=== PATIENT | female | born 1985 | race Caucasian/White ===

== ENCOUNTER 2020-12-14 12:03 | Emergency (ER) | payer OTHER, SELFPAY ==
[2020-12-14 12:12] VITALS: BP 120/80; PULSE 101; RESP 16; TEMP 37.4; O2SAT 100
--- NOTE | 2020-12-14 12:51 | ED.SKABFB ---
HPI - Skin/Abscess/Foreign Bdy General Chief complaint: Skin/Abscess/Foreign Body Stated complaint: Insect Bites on several parts of the Body Time Seen by Provider: 12/14/20 12:52 Source: patient Mode of arrival: ambulatory Limitations: no limitations History of Present Illness HPI narrative: Kami Carbajal is a 35-year-old female with a PMH of herpes who comes to [facility] with a rash that she has had for almost a year. The dog that she sleeps with been diagnosed with scabies and she is here for treatment of the same Related Data Home Medications Medication Instructions Recorded Confirmed acyclovir 12/14/20 Allergies Allergy/AdvReac Type Severity Reaction Status Date / Time sulfamethoxazole Allergy Swelling Verified 12/14/20 12:41 [From Bactrim] trimethoprim [From Bactrim] Allergy Swelling Verified 12/14/20 12:41 Review of Systems Review of Systems: CONSTITUTIONAL: Denies fever, chills, sweats. EYES: Denies visual changes, redness, discharge. ENT: Denies rhinorrhea, congestion, sore throat, otalgia. CARDIOVASCULAR: Denies chest pain, palpitations, edema. RESPIRATORY: Denies dyspnea, wheezing, cough GASTROINTESTINAL: Denies abdominal pain, nausea, vomiting, diarrhea. GENITOURINARY: Denies dysuria, hematuria, abnormal discharge SKIN: Denies rash or itching. Rash on face, arms legs sores on face NEUROLOGIC: Denies numbness, or focal weakness. PSYCHIATRIC: Denies anxiety or depression. PMFSH Past Medical History Medical History No active medical problems Family History Family History (Updated 12/14/20 @ 13:20 by Lizeth Beltran CNP) Other No acute medical problems Comments At time of signature, I agree with nursing past medical, surgical, social and family history. There is no relevant family history pertinent to the presenting complaint. Exam Narrative: GENERAL: This is a well-nourished, well-developed patient, in mild distress. HEAD: normocephalic, atraumatic. EYES: Sclera clear/white. Vision is grossly intact. EARS: External ears normal, Nose normal nasal discharge, nares without redness, no rhinorrhea. THROAT: Mucous membranes moist, NECK: Neck supple, non-tender CARDIOVASCULAR: Regular rate and rhythm without murmurs, gallops, or rubs. RESPIRATORY: Clear to auscultation. Breath sounds equal bilaterally. No wheezes, rales, or rhonchi. GASTROINTESTINAL: Abdomen soft, non-tender, SKIN: warm, intact with sores on face and rash on face arms legs many scabs NEURO: awake, alert, and oriented to person, place and time. There were no obvious focal neurologic abnormalities. Steady gait EXTREMITIES: Normal range of motion. BACK: Nontender without deformity Course Course Emergency Course: Patient comes with rash and sores on face and all over body rash that said the dogs have scabies Urine is negative Started on Keflex and permethrin with retreatment Vital Signs Vital signs: Vital Signs Temperature 99.3 F 12/14/20 12:12 Pulse Rate 101 H 12/14/20 12:12 Respiratory Rate 16 12/14/20 12:12 Blood Pressure 120/80 12/14/20 12:12 Pulse Oximetry 100 12/14/20 12:12 Temperature 99.3 F 12/14/20 12:12 Pulse Rate 101 H 12/14/20 12:12 Respiratory Rate 16 12/14/20 12:12 Blood Pressure 120/80 12/14/20 12:12 Pulse Oximetry 100 12/14/20 12:12 MDM - Skin/Abscess/Foreign Bdy Differential Diagnosis Differential diagnosis: Likely abscess of skin or subcutaneous tissue, dermatophytosis, urticaria, cellulitis, insect bites and contact dermatitis Lab Data Labs: UCG Bedside Result Negative Reference Range: Negative Discharge Plan Discharge Clinical Impression: Insect bites Qualifiers: Encounter type: initial encounter Site of insect bite: forearm Laterality: unspecified laterality Qualified Code(s): S50.869A - Insect bite (nonve
== END 2020-12-14 13:28 | disposition home or self-care (01) ==
PROVIDERS: Emergency Provider Nurse Practitioner
DX: S00.86XA Insect bite (nonvenomous) of other part of head, initial encounter (principal); S40.862A Insect bite (nonvenomous) of left upper arm, initial encounter; S40.861A Insect bite (nonvenomous) of right upper arm, initial encounter; S80.862A Insect bite (nonvenomous), left lower leg, initial encounter; S80.861A Insect bite (nonvenomous), right lower leg, initial encounter; W57.XXXA Bitten or stung by nonvenomous insect and other nonvenomous arthropods, initial encounter
CPT/HCPCS: 81025; 99213; G0463